=== PATIENT | male | born 1980 | race American Indian/Alaskan Native ===

== ENCOUNTER 2018-04-13 14:21 | Emergency (ER) | payer SELFPAY ==
[2018-04-13 14:48] VITALS: BP 150/108
--- NOTE | 2018-04-13 16:46 | Emergency Department Report ---
ED General Adult HPI - General Chief complaint: High BP Stated complaint: HYPERTENSIVE Time Seen by Provider: 04/13/18 16:32 Source: patient Mode of arrival: Ambulatory Limitations: No Limitations - History of Present Illness Initial comments: Patient is a 37-year-old -[place] male who has a past history of hypertension. Patient was seen at a clinic today for work and was noted to the blood pressure was elevated. Patient was told to come to the emergency department to get a prescription. Patient states he feels well he denies any chest pain shortness of breath fevers chills nausea vomiting or focal neurological deficit. - Related Data Previous Rx's Medication Instructions Recorded Last Taken Type Lisinopril/Hydrochlorothiazide 1 each PO DAILY #30 tablet 04/13/18 Unknown Rx [Zestoretic 10-12.5 mg Tablet] Allergies Allergy/AdvReac Type Severity Reaction Status Date / Time No Known Allergies Allergy Unverified 04/13/18 14:46 ED Review of Systems ROS: Stated complaint: HYPERTENSIVE Other details as noted in HPI Comment: All other systems reviewed and negative ED Past Medical Hx - Past Medical History Hx Hypertension: Yes - Surgical History Past Surgical History?: No - Social History Smoking Status: Never Smoker Substance Use Type: Alcohol - Medications Home Medications: Home Medications Medication Instructions Recorded Confirmed Last Taken Type Lisinopril/Hydrochlorothiazide 1 each PO DAILY #30 tablet 04/13/18 Unknown Rx [Zestoretic 10-12.5 mg Tablet] ED Physical Exam - General Limitations: No Limitations General appearance: alert, in no apparent distress - Head Head exam: Present: atraumatic, normocephalic - Eye Eye exam: Present: normal appearance - ENT ENT exam: Present: mucous membranes moist - Neck Neck exam: Present: normal inspection - Respiratory Respiratory exam: Present: normal lung sounds bilaterally. Absent: respiratory distress, wheezes, rales, rhonchi - Cardiovascular Cardiovascular Exam: Present: regular rate, normal rhythm. Absent: systolic murmur, diastolic murmur, rubs, gallop - GI/Abdominal GI/Abdominal exam: Present: soft, normal bowel sounds. Absent: distended, tenderness, guarding, rebound - Rectal Rectal exam: Present: deferred - Extremities Exam Extremities exam: Present: normal inspection - Back Exam Back exam: Present: normal inspection - Neurological Exam Neurological exam: Present: alert, oriented X3 - Psychiatric Psychiatric exam: Present: normal affect, normal mood - Skin Skin exam: Present: warm, dry, intact, normal color. Absent: rash ED Course Vital Signs 04/13/18 14:46 Temperature 98.7 F Pulse Rate 84 Respiratory 16 Rate Blood Pressure 150/108 O2 Sat by Pulse 100 Oximetry ED Medical Decision Making - Medical Decision Making Patient is a 37-year-old -[place] male who does not seem to have any evidence of any end organ damage. Patient's blood pressure was slightly elevated. Patient be placed back on his blood pressure medicine and discharged home. Patient is clinically stable to return to work. Critical care attestation.: If time is entered above; I have spent that time in minutes in the direct care of this critically ill patient, excluding procedure time. ED Disposition Clinical Impression: Hypertensive urgency Disposition: DC-01 TO HOME OR SELFCARE Is pt being admited?: No Does the pt Need Aspirin: No Condition: Stable Instructions: Hypertension (ED) Prescriptions: Lisinopril/Hydrochlorothiazide [Zestoretic 10-12.5 mg Tablet] 1 each PO DAILY # 30 tablet Referrals: PRIMARY CARE, [Primary Care Provider] - 3-5 Days Forms: Work/School Release Form(ED) Time of Disposition: 16:46
[2018-04-14] MEDS ORDERED: TORADOL IM ONE (07:50)
== END 2018-04-13 16:54 | disposition home or self-care (01) ==
LOC: ED 14:21
DX: I10 Essential (primary) hypertension (principal); I16.0 Hypertensive urgency
CPT/HCPCS: 99282

== ENCOUNTER 2018-12-13 14:01 | Emergency (ER) | payer OTHER ==
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
[2018-12-13 14:17] VITALS: BP 114/82
--- NOTE | 2018-12-13 15:00 | XRay Report ---
CERVICAL SPINE, 3 views: History: Neck pain. Findings: The vertebral bodies, disk spaces, posterior elements and prevertebral soft tissues are unremarkable. The dens is intact. No acute fracture or malalignment is identified. Impression: 1. No evidence for acute injury to the cervical spine.
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
== END 2018-12-13 18:06 | disposition home or self-care (01) ==
LOC: ED 14:01
DX: S16.1XXA Strain of muscle, fascia and tendon at neck level, initial encounter (principal); S29.012A Strain of muscle and tendon of back wall of thorax, initial encounter; I10 Essential (primary) hypertension; V87.7XXA Person injured in collision between other specified motor vehicles (traffic), initial encounter; Y93.89 Activity, other specified; Y92.481 Parking lot as the place of occurrence of the external cause; Y99.8 Other external cause status
CPT/HCPCS: 72040; 99283